=== PATIENT | male | born 1970 | race Caucasian/White ===

== ENCOUNTER → 2019-02-02 | Outpatient (CLI) | payer OTHER ==
--- NOTE | 2019-02-08 20:24 | SLEEP ---
[address] [address] SLEEP STUDY REPORT Name: MAICO ESPINOSA Room: [facility]#: [id number] Admission: 02/02/19 Attend Phys: Josy Cleary DO Discharge: Date of : 72 Report #: [id number] THIS REPORT FOR: //name// CC: Josy Cleary DO This study has been reviewed in its entirety by a board certified sleep specialist DATE OF SERVICE: 02/03/2019 HOME SLEEP STUDY: ATTENDING PHYSICIAN: Josy Cleary D.O. The patient is 48 years old who weighs 247 pounds with a BMI of 34.4. The patient's [place] score was 11. The patient underwent home sleep study performed at [facility]. Total recording time was 434 minutes. During the night study, the patient had 169 obstructive apneas, no central or mixed apneas and 194 hypopneas. The patient's apnea hypopnea index was 50 per hour. Nocturnal oximetry study revealed an average oxygen saturation of 89% with lowest of 73%. 247 minutes were spent in oxygen saturation of less than 90% and another 46 minutes with saturation of less than 85%. Mean heart rate was 70 beats per minute with a maximum of 110 beats per minute. IMPRESSION: 1. Severe sleep apnea-hypopnea syndrome with an AHI of 50 per hour. 2. Moderate to severe nocturnal hypoxia secondary to obstructive sleep apnea. RECOMMENDATIONS: 1. The patient would benefit from in-lab CPAP titration study. 2. Once optimum CPAP pressure is achieved, then follow up in 4-6 weeks to assess compliance with CPAP and to document clinical improvement. 3. Weight loss is strongly advised. 4. Avoid MAINTENANCE ANALYST depressants. 5. Cautioned regarding driving until symptoms of sleep apnea resolve with the use of CPAP. <ELECTRONICALLY SIGNED> By: Jasmeet Forte MD 02/08/19 2024 1615 1944Auriah Forte MD /nt
== END ==
LOC: M.SLEEPLAB 15:47 → EDBD 16:30 → M.SLEEPLAB 16:30
DX: G47.33 Obstructive sleep apnea (adult) (pediatric) (principal); R09.02 Hypoxemia; I10 Essential (primary) hypertension; R06.83 Snoring